=== PATIENT | male | born 1995 | race Caucasian/White ===

== ENCOUNTER 2018-02-12 11:33 | Emergency (ER) | payer OTHER ==
[2018-02-12 11:41] VITALS: BP 135/72
[2018-02-12] MEDS ORDERED: NAPROXEN 250 MG TABLET PO STA (12:06)
--- NOTE | 2018-02-12 12:08 | ED Physician Documentation ---
History of Present Illness - Stated complaint Stated Complaint: HEAD INJ - Chief complaint Chief Complaint: Heent - Additonal information Additional information: 22-year-old male presents the emergency department for evaluation of a head inju ry which occurred this morning at home. The patient struck his head on a doorknob. There was no loss of consciousness, the patient does report slight dizziness. The patient denies laceration, swelling or contusion of the scalp. The patient denies neck pain, chest pain, abdominal, pelvic or extremity trauma. Symptoms are described as mild. No other associated symptoms. Review of Systems Constitutional: denies: Fever Eyes: denies: Loss of vision Ears: denies: Ear pain Nose: denies: Congestion Throat: denies: Sore throat Cardiac: denies: Chest pain / pressure GI: denies: Abdominal Pain, Vomiting Musculoskeletal: denies: Neck pain Neurologic: reports: Head injury. denies: Generalized weakness, Focal weakness, Numbness, Near syncope, Confused, Altered mental status, Unresponsive PD PAST MEDICAL HISTORY - Present Medications Home Medications: Ambulatory Orders Medication Instructions Recorded Confirmed No Known Home Medications 02/12/18 02/12/18 - Allergies Allergies/Adverse Reactions: Allergies Allergy/AdvReac Type Severity Reaction Status Date / Time No Known Drug Allergies Allergy Verified 02/12/18 11:41 PD ED PE NORMAL - General General: Alert and oriented X 3, No acute distress, Well developed/nourished - HEENT HEENT: Atraumatic, PERRL, EOMI, Ears normal, Moist mucous membranes - Neck Neck: Supple, no meningeal sign, No bony TTP - Cardiac Cardiac: RRR - Respiratory Respiratory: No respiratory distress - Derm Derm: Normal color - Extremities Extremities: No deformity - Neuro Neuro: Alert and oriented X 3, No motor deficit, Normal speech - Psych Psych: Normal affect Results - Vitals Vitals: Vital Signs - 24 hr 02/12/18 11:39 Temperature 36.2 C L Heart Rate 70 Respiratory 17 Rate Blood Pressure 135/72 H O2 Saturation 98 Oxygen O2 Source Room air PD MEDICAL DECISION MAKING - ED course ED course: On physical exam there is no findings that would suggest a skull fracture or intracranial hemorrhage, So currently I do not see any need for a CT scan. I discussed with the patient and his mother the natural course of a concussion. I advised follow-up with primary care and recommend returning for any worsening or any concerns. Departure - Departure Disposition: 01 Home, Self Care Clinical Impression: Closed head injury Qualifiers: Encounter type: initial encounter Qualified Code(s): S09.90XA - Unspecified injury of head, initial encounter Condition: Good Instructions: ED Head Injury Closed Ch Comments: Please follow-up with primary care. Please return to the emergency department for worsening symptoms or any concern
== END 2018-02-12 12:30 | disposition home or self-care (01) ==
LOC: ED 11:33
DX: S09.90XA Unspecified injury of head, initial encounter (principal); W01.198A Fall on same level from slipping, tripping and stumbling with subsequent striking against other object, initial encounter; Y92.002 Bathroom of unspecified non-institutional (private) residence as the place of occurrence of the external cause
CPT/HCPCS: 99282; 99283; A9270